=== PATIENT | male | born 1950 | race Caucasian/White ===

== ENCOUNTER 2021-12-18 06:13 | Day surgery (SDC) | payer MEDICARE, SELFPAY ==
[2021-12-12 15:00] VITALS: BMI 38.4
--- NOTE | 2021-12-17 15:23 | HO.ANESPROP2 ---
Documented by User: Lisa Diaz NP 12/17/21 15:23 HPI - Anesthesia Eval Consult details Narrative: 71yo M for Upper Endoscopy with Balloon Dilitation PMFSH Past Medical History Medical History Anxiety Dysphagia GERD (gastroesophageal reflux disease) HTN (hypertension) Seasonal allergies Surgical History Surgical History H/O colonoscopy History of hip surgery History of lung biopsy Hx of knee surgery Social History Social History Patient Tobacco Use Status: Former Tobacco user Use of substances other than those prescribed or required for medical reasons: No Are you DNR?: No Advance Directives: No Advance Directives Information Provided: Yes Recently lost weight without trying: No Nutrition Risks: No Nutritional Risk Meds Allergies Allergy/AdvReac Type Severity Reaction Status Date / Time Ehyqtkm-HPM-GnG Reductase Allergy Unknown Rash Verified 12/18/21 06:43 Inhibitor Home Medications Medication Instructions Recorded Confirmed Last Taken Type cetirizine 10 mg tablet (Zyrtec) 10 mg PO DAILY 12/12/21 12/12/21 Unknown History chlorthalidone 15 mg tablet 15 mg PO DAILY 12/12/21 12/12/21 Unknown History fluoxetine 20 mg tablet 20 mg PO DAILY 12/12/21 12/12/21 Unknown History lorazepam 0.5 mg tablet 0.5 mg PO BEDTIME PRN 12/12/21 12/12/21 Unknown History metoprolol succinate 25 mg capsule 25 mg PO DAILY 12/12/21 12/12/21 Unknown History sprinkle, ext. release 24 hr montelukast 10 mg tablet 10 mg PO BEDTIME 12/12/21 12/12/21 Unknown History omeprazole 20 mg capsule,delayed 20 mg PO DAILY 12/12/21 12/12/21 Unknown History release Exam Exam Date and Time: December 17, 2021 1523 Height,Weight and Vital Signs: Height 5 ft 10 in Weight 121.563 kg Assessment and Plan Assessment Anesthesia Assessment: Chart Reviewed Documented by User: Jai Duron MD 12/18/21 10:21 [facility] Past Medical History Medical History Anxiety Dysphagia GERD (gastroesophageal reflux disease) HTN (hypertension) Seasonal allergies Family History Family history of problems with anesthesia: No Surgical History Surgical History H/O colonoscopy History of hip surgery History of lung biopsy Hx of knee surgery History of Problems with Anesthesia: No Social History Social History Patient Tobacco Use Status: Former Tobacco user Use of substances other than those prescribed or required for medical reasons: No Are you DNR?: No Advance Directives: No Advance Directives Information Provided: Yes Recently lost weight without trying: No Nutrition Risks: No Nutritional Risk Meds Allergies Allergy/AdvReac Type Severity Reaction Status Date / Time Hvjteij-LPP-TgM Reductase Allergy Unknown Rash Verified 12/18/21 06:43 Inhibitor Home Medications Medication Instructions Recorded Confirmed Last Taken Type cetirizine 10 mg tablet (Zyrtec) 10 mg PO DAILY 12/12/21 12/12/21 Unknown History chlorthalidone 15 mg tablet 15 mg PO DAILY 12/12/21 12/12/21 Unknown History fluoxetine 20 mg tablet 20 mg PO DAILY 12/12/21 12/12/21 Unknown History lorazepam 0.5 mg tablet 0.5 mg PO BEDTIME PRN 12/12/21 12/12/21 Unknown History metoprolol succinate 25 mg capsule 25 mg PO DAILY 12/12/21 12/12/21 Unknown History sprinkle, ext. release 24 hr montelukast 10 mg tablet 10 mg PO BEDTIME 12/12/21 12/12/21 Unknown History omeprazole 20 mg capsule,delayed 20 mg PO DAILY 12/12/21 12/12/21 Unknown History release Exam Airway Mallampati Class: III TM Dist: >3cm Neck ROM: Full Loose/Missing/Broken Teeth: Yes (Implants ) Heart: S1, S2 Lungs: b/l breath sounds Assessment and Plan Assessment Anesthesia Assessment: Anesthesia Plan Discussed Final Anesthetic Review Family History of Problems with Anesthesia: No History of Problems with Anesthesia: No NPO: Yes ASA Class: II Final Preanesthetic Review: Meds/Allgs Chart Reviewed, Consent Obtained/Reviewed and Anes Risks/Benef Reviewed Patient Risk: Intermediate Procedure Risk: Intermediate Anesthetic Plan Anesthetic Plan: MAC: Disposition: Standard PACU
[2021-12-18 06:41] VITALS: BP 142/86; PULSE 73; RESP 18; TEMP 36.2; O2SAT 98
[2021-12-18] MEDS: Lactated Ringers 1,000 ML 100 ML IVCONT (07:00)
--- NOTE | 2021-12-18 07:07 | PC.NURSE ---
pt with vasovagal response to iv start in R fa #20, relieved with smelling alcohol wipe, hob flat, cool cloth & ivf LR w.o. brief sbrady to low 50's transient. pt felt flushed. repeat hr 67 and 131/65 98% ra. adds that he hasn't been able to eat or drink for 8 or 9 days.
[2021-12-18 07:22] VITALS: BP 131/65; PULSE 61; RESP 18; O2SAT 98
[2021-12-18 08:10] VITALS: BP 98/65; PULSE 66; RESP 16; TEMP 36.7; O2SAT 97
--- NOTE | 2021-12-18 08:19 | PM.OP ---
Brief Operative Note Date of Service: 12/18/21 Pre-op diagnosis: Dysphagia Post-op diagnosis: other (Healing gastric ulcer, small hiaal hernia, R/O H. pylori, R/O EoE) Procedure: EGD with Balloon Dilation and biopsies Surgeon: Jan Oneil Anesthesia: MAC Was an Produce Service Team Member used for this Procedure?: No Estimated blood loss (mL): 2.0 Pathology: other (A. Proximal stomach B. Gastric antrum C. Esophagus at 25cm) Condition: stable Disposition: PACU
[2021-12-18 08:25] VITALS: BP 115/61; PULSE 67; RESP 16; TEMP 37.1; O2SAT 97
--- NOTE | 2021-12-18 20:16 | OP_ITS ---
SURGEON: Jan Oneil MD INDICATIONS: The patient presents for evaluation of dysphagia. Full consent was obtained from him for this, including risks of bleeding and perforation. PREOPERATIVE DIAGNOSIS: Dysphagia. POSTOPERATIVE DIAGNOSIS: PROCEDURE PERFORMED: ESTIMATED BLOOD LOSS: COMPLICATIONS: ANESTHESIA: Monitored anesthesia care. ASSISTANTS: SPECIMENS: PROCEDURE: Esophagogastroduodenoscopy with balloon dilation of gastroesophageal junction and biopsies. POSTOPERATIVE DIAGNOSES: Dysphagia, healing proximal gastric ulcer, minimal hiatal hernia, rule out Helicobacter pylori, rule out eosinophilic esophagitis. DESCRIPTION OF PROCEDURE: The patient was placed in the left lateral decubitus position. The Olympus video gastroscope was passed in the posterior oropharynx and upper esophagus under direct vision. The scope was passed slowly to the distal esophagus. The gastroesophageal junction appeared at 39 cm. There was no evidence of any stricture, ulceration, nor mass. The scope passed easily into the stomach. There was a minimal hiatal hernia. The scope was advanced to the pylorus and the duodenum was cannulated to the descending portion. The duodenum including the bulb appeared normal without mass or ulceration. The scope was withdrawn back into the stomach. The gastric antrum and body appeared normal with good peristalsis. The scope was retroflexed visualizing the proximal stomach carefully. In the proximal stomach, along the greater curvature, was what appeared to be a healing ulcer with some central scarring and puckering of folds. This was actually seen best in the forward viewing position at approximately 45 cm. The central portion was somewhat firm and friable. Multiple biopsies were obtained from it. I also obtained biopsies from the gastric antrum. The scope was withdrawn back into the esophagus. Given the symptomatology, I did use a [employer] incremental balloon to dilate the gastroesophageal junction from 18 mm to 19 mm at the recommended pressure for approximately 60 seconds. Post dilation, there was some heme noted. The scope did seem to pass into the stomach easier after the dilation. The esophagus itself appeared normal without any sign of proximal esophageal rings. Biopsies were obtained at 25 cm. The scope was withdrawn to the patient. He tolerated the procedure well and was returned to recovery area in stable condition. IMPRESSION: 1. Apparent healing proximal gastric ulcer, status post biopsies. Rule out Helicobacter pylori. 2. Minimal hiatal hernia. 3. Status post balloon dilation of gastroesophageal junction. 4. Rule out eosinophilic esophagitis. PLAN: The results of biopsies will be checked. He has been advised to continue his proton pump inhibitor at 40 mg that he has at home. He was advised to stay off all aspirin and NSAIDs long-term. The results of biopsies will be checked. He will be seen in followup in the office. This has been discussed with his . MD SUMMER Esqueda/TAJ / [id number] MTDD
== END 2021-12-18 09:14 | disposition home or self-care (01) ==
PROVIDERS: PCP Internal Medicine; Visit Provider Internal Medicine
PROC: (CPT 43249; principal; 2021-12-18 07:30)
DX: R13.19 Other dysphagia (principal); K21.9 Gastro-esophageal reflux disease without esophagitis; K25.9 Gastric ulcer, unspecified as acute or chronic, without hemorrhage or perforation; K44.9 Diaphragmatic hernia without obstruction or gangrene; I10 Essential (primary) hypertension; F41.1 Generalized anxiety disorder; Z79.899 Other long term (current) drug therapy; Z88.8 Allergy status to other drugs, medicaments and biological substances; Z87.891 Personal history of nicotine dependence
CPT/HCPCS: 43249; 43239; 88305; 88341; 88342; 88360; C1726; J2250; J3010

== ENCOUNTER 2022-01-03 06:57 | Outpatient (REF) | payer MEDICARE, SELFPAY ==
--- NOTE | ~2022-01-03 | CT_ITS ---
EXAMINATION: CT ABDOMEN AND PELVIS WITH CONTRAST CLINICAL INFORMATION: Adenocarcinoma of the stomach. COMPARISON: CT of 05/25/2008 and PET/CT of 08/17/2008. CT chest of 09/04/2009 TECHNIQUE: Multidetector volumetric images were obtained from the superior aspect of the liver through the pubic symphysis following administration 85 mL of Omnipaque 350 intravenous contrast. Sagittal and coronal reformatted images were obtained on the technologist's workstation. Oral contrast: Yes This CT examination was performed using dose optimization techniques as appropriate, variously including the following: *Automated exposure control *Adjustment of mA and/or kV according to patient size (this includes techniques or standardized protocols for targeted exams where dose is matched to indication/reason for exam; i.e. extremities or head) *Use of iterative reconstruction technique DLP: 739 mGy-cm FINDINGS: LUNG BASES: Within the right lower lobe adjacent to the minor fissure on image 9 of 825 in series #4. There is a 1.1 cm noncalcified nodule present. This was not evident on previous CT scan of the chest. Within the right lower lobe there is a noncalcified subpleural nodule seen measuring 9 mm in diameter on image 96 of 825. Previously, this measured 5 mm in size on CT scan of 09/04/2009. Within the right lower lobe on image 59 of 825, there is a noncalcified 6 mm nodule present. On prior study this appears to represent an intrafissural density, which measured 3 mm on prior study. Within the left lower lobe there are 2 pleural-based nodules present, which are not calcified. One measures 6 mm in diameter and the other measures 8 mm in diameter on image #64 of 825. These were present on prior study and measured 4 and 3 mm in diameter. Heart normal size. No pericardial effusion. No pleural effusion. There is mild aortic valve calcification. There is some mild coronary artery calcification. LIVER, GALLBLADDER, AND BILIARY TREE: There is mild hepatomegaly with vertical span of 20 cm. There is diffuse fatty infiltration of the liver. No solid mass or intrahepatic bile duct dilatation is appreciated. The gallbladder is unremarkable with no evidence of radiopaque gallstones, gallbladder wall thickening, or obvious pericholecystic inflammatory changes. PANCREAS: Unremarkable. SPLEEN: There is splenomegaly with vertical span of 18.5 cm. ADRENAL GLANDS: Unremarkable. KIDNEYS AND URETERS: The kidneys are normal in size, shape, and attenuation. No hydronephrosis, hydroureter, or calculi seen. No perinephric stranding. There is a 5 mm low-density cortical lesion seen within the upper pole of the right kidney, likely representing a small cyst. BLADDER: Decompressed. GASTROINTESTINAL TRACT: No dilated loops of large or small bowel are evident. No free air or free fluid is seen. No pericolonic inflammatory change is seen. The appendix is visualized and appears unremarkable. ABDOMINAL WALL: Small umbilical fat-containing anterior abdominal hernia seen. LYMPH NODES: There are some prominent bilateral inguinal lymph nodes present. No intraperitoneal lymphadenopathy appreciated. VASCULAR: No abdominal aortic aneurysm. Mild calcified plaque in the aortoiliac system present. PELVIC VISCERA: Prominent prostate gland with calcifications. OSSEOUS STRUCTURES: No suspicious destructive bony lesions identified. There is severe degenerative disc disease seen at the L5-S1 level. CT/CT abdomen pelvis w con IMPRESSION: Hepatosplenomegaly. Diffuse fatty infiltration of the liver. Slowly enlarging lung nodules as described, as well as a new 1.1 cm right lower lobe nodule. Recommend CT of the chest for further evaluation of possible other lung nodules.
[2022-01-03 07:23] LABS: MANUAL DIFF FLAG NO
[2022-01-03 08:03] LABS: Basophils Absolute Auto 0.1 X10*3/uL (0.0-0.2); Basophils Percent Auto 0.8 % (0-2); Eosinophils Absolute Auto 0.3 X10*3/uL (0.0-0.4); Eosinophils Percent Auto 3.4 % (0-4); Hematocrit 45.5 % (42.0-52.0); Hemoglobin 16.1 g/dl (14.0-18.0); Imm Gran Abs Auto 0.05 X10*3/uL (0.00-0.03); Imm Gran Pct Auto 0.6 % (0.0-0.4); Lymphocytes Absolute Auto 1.4 X10*3/uL (1.2-4.9); Mean Corpuscular HGB Conc 35.4 g/dl (31.0-36.0); Mean Corpuscular Hemoglobin 29.4 pg (27.0-33.0); Mean Corpuscular Volume 83.2 fL (80.0-98.0); Mean Platelet Volume 9.2 fL (9.4-12.4); Monocytes Absolute Auto 0.8 X10*3/uL (0.1-1.2); Neutrophils Absolute Auto 5.8 x10*3/uL (2.0-8.3); Neutrophils Percent Auto 68.2 % (45-73); Platelet Count 219 X10*3/uL (160-400); Red Blood Count 5.47 X10*6/uL (4.60-5.80); Red Cell Distribution Width 14.1 % (11.0-16.0); White Blood Count 8.4 X10*3/uL (4.8-10.8)
[2022-01-03 08:43] LABS: Alanine Aminotransferase 30 U/L (0-40); Alkaline Phosphatase 60 U/L (39-117); Aspartate Amino Transferase 22 U/L (5-37); Bilirubin Direct 0.3 mg/dL (0.0-0.5); Blood Urea Nitrogen 18 mg/dL (9-16); Estimated Glomerular Filt Rate > 60
[2022-01-03] MEDS: iohexoL 350 MG/ML 100 ML INFUS..BTL IV (09:37)
[2022-01-03] MEDS: Barium Sulfate Oral (Vanilla) 450 ML ORAL.SUSP 900 ML PO (09:38)
== END 2022-01-03 06:58 | disposition home or self-care (01) ==
LOC: HO.CT 06:57
PROVIDERS: PCP Internal Medicine; Visit Provider Internal Medicine
DX: C16.9 Malignant neoplasm of stomach, unspecified (principal)
CPT/HCPCS: 36415; 74177; 80076; 82378; 82565; 84520; 85025; Q9967

== ENCOUNTER 2022-09-03 09:38 | Emergency (ER) | payer MEDICARE, SELFPAY ==
--- NOTE | ~2022-09-03 | XR_ITS ---
EXAMINATION: XR CHEST CLINICAL INFORMATION: Shortness of breath status post COVID. COMPARISON: CT scan of the abdomen and pelvis dated 01/03/2022, chest radiographs dated 07/08/2008. TECHNIQUE: 2 views of the chest were obtained. FINDINGS: Support devices: Right central venous port with tip terminating in the superior vena cava. Bibasilar opacities are seen without pleural effusions. The upper lung plaza are clear. The heart and mediastinal structures are unremarkable. XR/XR chest 2V IMPRESSION: Bibasilar opacities are nonspecific and could represent atelectasis and/or infiltrates.
[2022-09-03 09:53] VITALS: BP 122/74; PULSE 69; RESP 18; TEMP 36.7; O2SAT 93; BMI 29.4
--- NOTE | 2022-09-03 10:01 | ECG_ITS ---
Test Reason : cp Blood Pressure : / mmHG Vent. Rate : 065 BPM Atrial Rate : 065 BPM P-R Int : 152 ms QRS Dur : 106 ms QT Int : 412 ms P-R-T Axes : 038 006 042 degrees QTc Int : 428 ms Normal sinus rhythm Inferior infarct , age undetermined Abnormal ECG When compared with ECG of 08-JUL-2008 07:11, Inferior infarct is now Present Referred By: Generic ED Physician Electronically Signed By:MICH LYNN MD
== END 2022-09-03 15:22 | disposition left against medical advice (07) ==
LOC: HO.ED 14:28
PROVIDERS: Emergency Provider Emergency Medicine; PCP Internal Medicine
DX: R07.89 Other chest pain (principal); R06.02 Shortness of breath
CPT/HCPCS: 71046; 93005; 99283